=== PATIENT | male | born 1970 | race Caucasian/White ===

== ENCOUNTER 2019-10-01 12:10 | Emergency (ER) | payer OTHER ==
[~2019-10-01] VITALS: Ht 185.4 cm; Wt 90.9 kg
[2019-10-01] MEDS ORDERED: SODIUM CHLORIDE FLUSH 10ML SYR IVF ONE (12:30)
--- NOTE | 2019-10-01 12:43 | NUR ---
pt bib remsa for c/o "all muscles were tensed up then he threw up". was awake moaning in pain during episode. lasted 20 min off/on. no post ictal period either time. had one last night and this morning. they both happened after pt used inversion table at work. pt denies hx sz. pt resting on [employer] rima.
[2019-10-01] MEDS ORDERED: PLEASE ENTER ALLERGIES MC SCH (13:00)
[2019-10-01] MEDS ORDERED: PLEASE ENTER HEIGHT AND WEIGHT MC SCH (13:00)
[2019-10-01 13:01] LABS: BASOPHILS # (AUTO) 0.01 x10^3/uL (0-0.1); BASOPHILS % (AUTO) 0 % (0-1); EOSINOPHILS # (AUTO) 0.04 x10^3/uL (0-0.4); EOSINOPHILS % (AUTO) 1 % (1-7); LYMPHOCYTES # (AUTO) 0.38 x10^3/uL (1-3.4); LYMPHOCYTES % (AUTO) 6 % (22-44); MD NO; MEAN CORPUSCULAR HEMOGLOBIN 32.7 pg (27.5-34.5); MEAN CORPUSCULAR VOLUME 96.2 fL (81-97); MEAN PLATELET VOLUME 7.6 fL (7.4-10.4); MONOCYTES # (AUTO) 0.01 x10^3/uL (0.2-0.8); MONOCYTES % (AUTO) 0 % (2-9); NEUTROPHILS # (AUTO) 5.49 x10^3/uL (1.8-6.8); NEUTROPHILS % (AUTO) 93 % (42-75); PLATELET COUNT 139 x10^3/uL (130-400); RED BLOOD COUNT 4.89 x10^6/uL (4.38-5.82); RED CELL DISTRIBUTION WIDTH 12.9 % (9.4-14.8)
--- NOTE | 2019-10-01 13:05 | NUR ---
PT DUENAS OF NEED FOR UA.
[2019-10-01 13:12] LABS: ALANINE AMINOTRANSFERASE 34 U/L (12-78); ALBUMIN 3.9 g/dL (3.4-5.0); ANION GAP 6 mmol/L (5-15); CALCIUM 8.5 mg/dL (8.5-10.1); CHLORIDE 112 mmol/L (98-107); CREATININE 1.39 mg/dL (0.7-1.3)
[2019-10-01 13:14] LABS: ALKALINE PHOSPHATASE 63 U/L (45-117); BILIRUBIN,TOTAL 1.7 mg/dL (0.2-1.0); CREATINE KINASE, TOTAL 164 U/L (39-308); TOTAL PROTEIN 6.8 g/dL (6.4-8.2)
[2019-10-01] MEDS ORDERED: ACETAMINOPHEN 500 MG TABLET ONE (13:29)
[2019-10-01] MEDS ORDERED: ACETAMINOPHEN 500 MG TABLET PO ONE (13:30)
--- NOTE | 2019-10-01 14:10 | NUR ---
PT SLEEPING ON DANDY. NADN. MATTHEWS.
[2019-10-01 14:14] LABS: CULTURE INDICATED? YES; MICROSCOPIC INDICATED
[2019-10-01] MEDS ORDERED: ASA/APAP/ CAFFEINE TABLET PO ONE (15:00)
[2019-10-01] MEDS ORDERED: CEFTRIAXONE PMX 1GM/50ML 50 ML IV ONE (15:00)
[2019-10-01] MEDS ORDERED: CEFTRIAXONE PMX 1GM/50ML 50 ML ONE (15:04)
--- NOTE | 2019-10-01 15:16 | NUR ---
BLOOD CULTURES X 2 DRAWN PRIOR TO START OF IV ABX.
[2019-10-01 15:22] VITALS: BP 120/79
--- NOTE | 2019-10-01 15:31 | NUR ---
NO S/S OF ABX RXN NOTED. DC EDUCATION PROVIDED, PT DEMONSTRATES UNDERSTANDING. PT AMBULATED STEADIYL TO DC WITH RN.
== END 2019-10-01 15:45 | disposition home or self-care (01) ==
LOC: ED 15:20
DX: N30.00 Acute cystitis without hematuria (principal)
CPT/HCPCS: 36415; 71045; 80053; 81001; 82550; 83605; 83690; 83735; 84145; 85025; 87040; 87077; 87086; 96365; 99284; J0696; 87186

== ENCOUNTER → 2019-10-05 | Outpatient (CLI) | payer OTHER ==
[~2019-10-05] MED LIST: OMNIPAQUE 350 MG/ML, 150 ML BOTTLE ONE
== END | disposition home or self-care (01) ==
LOC: RAD 12:42
PROVIDERS: ATTEND Family Medicine
DX: K44.9 Diaphragmatic hernia without obstruction or gangrene (principal); R16.1 Splenomegaly, not elsewhere classified; J84.10 Pulmonary fibrosis, unspecified
CPT/HCPCS: 74178; Q9967